=== PATIENT | male | born 1990 | race Caucasian/White ===

== ENCOUNTER 2019-07-02 11:59 | Emergency (ER) | payer SELFPAY ==
[~2019-07-02] VITALS: Ht 172.7 cm; Wt 72.6 kg
[2019-07-02 12:06] VITALS: Ht 172.7 cm; Wt 72.6 kg
[2019-07-02 13:12] VITALS: BP 105/55
== END 2019-07-02 13:12 | disposition home or self-care (01) ==
LOC: ED 11:59
DX: G93.40 Encephalopathy, unspecified (principal); F32.9 Major depressive disorder, single episode, unspecified; F41.9 Anxiety disorder, unspecified
CPT/HCPCS: J2310